=== PATIENT | male | born 1940 | race Caucasian/White ===

== ENCOUNTER 2017-01-18 08:53 | Inpatient (IN) | payer MEDICARE, OTHER ==
[2017-01-18] MEDS ORDERED: Cyclobenzaprine 10 MG Tab PO ONE (09:55)
[2017-01-18] MEDS ORDERED: Ketorolac 30 MG/ML SDV IVPUSH ONE (09:55)
[2017-01-18] MEDS ORDERED: HYDROmorphone 0.5 MG/0.5 ML Syringe IVPUSH ONE (10:20)
[2017-01-18] MEDS ORDERED: Ondansetron 4 MG/2 ML SDV IVPUSH ONE (10:20)
--- NOTE | 2017-01-18 10:24 | EDM.PDOC ---
ED HPI GENERAL MEDICAL PROBLEM - General Chief Complaint: Abdominal Pain Stated Complaint: PAIN IN RIGHT SIDE OF STOMACH AND NAUSA Time Seen by Provider: 01/18/17 10:22 Source of Information: Reports: Patient History Limitations: Reports: No Limitations - History of Present Illness INITIAL COMMENTS - FREE TEXT/NARRATIVE: pt started having rt lower abdomanal pain yesterday and this has gotten progrssively wors. he hurts alot if he coughes or sneezes. He has not vomited but he was nauseated in route to the hosp. Onset: Other ( started yesterday. ) Duration: Hour(s):, Getting Worse Location: Reports: Abdomen Associated Symptoms: Reports: Nausea/Vomiting - Related Data Allergies Allergy/AdvReac Type Severity Reaction Status Date / Time Penicillins Allergy Rash Verified 01/18/17 09:40 Home Meds: Home Meds Clopidogrel [Plavix] 75 mg PO DAILY 01/18/17 [History] Ibuprofen [Motrin] 800 mg PO ASDIRECTED PRN 01/18/17 [History] Lisinopril 5 mg PO DAILY 01/18/17 [History] Metoprolol Succinate 50 mg PO DAILY 01/18/17 [History] Past Medical History HEENT History: Reports: Impaired Vision Cardiovascular History: Reports: [place] Respiratory History: Reports: Pneumonia, Recurrent Musculoskeletal History: Reports: Arthritis - Infectious Disease History Infectious Disease History: Reports: Chicken Pox, Diphtheria, Measles, Rubella, Shingles - Past Surgical History Cardiovascular Surgical History: Reports: Carotid Stents Social & Family History - Family History Cardiac: Reports: [place] Respiratory: Reports: COPD GI: Reports: None Oncologic: Reports: Pancreatic Other Oncologic Family History: MOTHER AND GRANDMOTHER PANCREATIC C - Tobacco Use Smoking Status *Q: Former Smoker Used Tobacco, but Quit: No - Caffeine Use Caffeine Use: Reports: Coffee Other Caffeine Use: 3-4 - Recreational Drug Use Recreational Drug Use: No ED ROS GENERAL - Review of Systems Review Of Systems: See Below Constitutional: Reports: Chills, Decreased Appetite HEENT: Reports: No Symptoms Respiratory: Reports: No Symptoms Cardiovascular: Reports: No Symptoms Endocrine: Reports: No Symptoms GI/Abdominal: Reports: Abdominal Pain, Distension, Other (pt has acute rt lower abdomanal pain. He states this started yesterday. He has not vomited. ) : Reports: No Symptoms Musculoskeletal: Reports: No Symptoms Skin: Reports: No Symptoms ED EXAM, GI/ABD - Physical Exam Exam: See Below Text/Narrative:: pt arrived with pain in the rt lower abdoman. If he coughes or sneezes he is very uncomfortable. Exam Limited By: No Limitations General Appearance: Alert, Anxious, Moderate Distress Ears: Normal TMs Nose: Normal Inspection Throat/Mouth: Normal Inspection Head: Atraumatic Neck: Normal Inspection Respiratory/Chest: No Respiratory Distress Cardiovascular: Regular Rate, Rhythm GI/Abdominal Exam: Guarding, Tender, Other ( pt is very uncomfortable when he is palpated. His abdoman does feel mildly distended. ) (Male) Exam: Deferred Rectal (Males) Exam: Deferred Back Exam: Normal Inspection Extremities: Normal Inspection Neurological: Alert, Oriented, Normal Cognition Course - Vital Signs Last Recorded V/S: Last Vital Signs Temp 37.1 C 01/18/17 09:47 Pulse 89 01/18/17 11:04 Resp 18 01/18/17 11:04 BP 158/125 H 01/18/17 11:04 Pulse Ox 91 L 01/18/17 11:04 - Orders/Labs/Meds Orders: Active Orders 24 hr Category Date Time Status Abdomen Pelvis w Cont [CT] Stat Exams 01/18/17 10:21 Taken UA W/MICROSCOPIC [URIN] Urgent Lab 01/18/17 09:43 Uncollected Sodium Chloride 0.9% [Normal Saline] 1,000 ml Med 01/18/17 10:30 Active IV ASDIRECTED Medication Orders Sodium Chloride (Normal Saline) 1,000 mls @ 400 mls/hr IV ASDIRECTED FRANCINE Labs: Laboratory Tests 01/18/17 01/18/17 01/18/17 Range/Units 09:49 09:49 09:49 WBC 16.3 H (4.5-11.0) K/uL RBC 4.89 (4.30-5.90) M/uL Hgb 15.1 H (12.0-15.0) g/dL Hct 42.5 (40.0-54.0) % MCV 87 (80-98) fL MCH 31 (27-31) pg MCHC 36 (32-36) % Plt Count 188 (150-400) K/uL Neut % (Auto) 82 H (36-66) % Lymph % (Auto) 7 L (24-44) % [place] % (Auto) 4 (2-6) % Eos % (Auto) 6 H (2-4) % Baso % (Auto) 1 (0-1) % Sodium 137 L (140-148) mmol/L Potassium 3.7 (3.6-5.2) mmol/L Chloride 101 (100-108) mmol/L Carbon Dioxide 31 (21-32) mmol/L Anion Gap 8.7 (5.0-14.0) mmol/L BUN 15 (7-18) mg/dL Creatinine 1.0 (0.8-1.3) mg/dL Est Cr Clr Drug Dosing 59.67 mL/min Estimated GFR (MDRD) > 60 (>60) Glucose 260 H (74-106) mg/dL Calcium 8.8 (8.5-10.1) mg/dL Total Bilirubin 0.7 (0.2-1.0) mg/dL AST 17 (15-37) U/L ALT 20 (12-78) U/L Alkaline Phosphatase 63 (46-116) U/L C-Reactive Protein 0.53 H (0.0-0.3) mg/dL Total Protein 7.6 (6.4-8.2) g/dL Albumin 3.4 (3.4-5.0) g/dL Globulin 4.2 H (2.3-3.5) g/dL Albumin/Globulin Ratio 0.8 L (1.2-2.2) Meds: Medications Generic Name Dose Route Start Last Admin Trade Name Freq PRN Reason Stop Dose Admin Sodium Chloride 1,000 mls @ 400 mls/hr 01/18/17 10:30 Normal Saline IV ASDIRECTED FRANCINE Discontinued Medications Generic Name Dose Route Start Last Admin Trade Name Freq PRN Reason Stop Dose Admin Cyclobenzaprine HCl 10 mg 01/18/17 09:55 Flexeril PO 01/18/17 09:56 ONETIME ONE Hydromorphone HCl 0.5 mg 01/18/17 10:20 Dilaudid IVPUSH 01/18/17 10:21 ONETIME ONE Iopamidol 118 ml 01/18/17 10:30 01/18/17 10:45 Isovue-300 (61%) IV 150 ml . DIRECTED FRANCINE Administration Ketorolac Tromethamine 30 mg 01/18/17 09:55 Toradol IVPUSH 01/18/17 09:56 ONETIME ONE Ondansetron HCl 4 mg 01/18/17 10:20 Zofran IVPUSH 01/18/17 10:21 ONETIME ONE - Re-Assessments/Exams Free Text/Narrative Re-Assessment/Exam: 01/18/17 11:13 pt arrived with pain in rt lower abdoman. His cat scan shows an acute appendicitis. His wbc is elevated. He has some air around the appendix. Departure - Departure Time of Disposition: 11:14 Disposition: Admitted As Inpatient 68 Condition: Fair Clinical Impression: Acute appendicitis - Discharge Information Referrals: PCP,None [Primary Care Provider] - Forms: ED Department Discharge Care Plan Goals: admit to Dr Del Toro. - My Orders Last 24 Hours: My Active Orders 01/18/17 09:43 UA W/MICROSCOPIC [URIN] Urgent 01/18/17 10:21 Abdomen Pelvis w Cont [CT] Stat 01/18/17 10:30 Sodium Chloride 0.9% [Normal Saline] 1,000 ml IV ASDIRECTED - Assessment/Plan Last 24 Hours: My Active Orders 01/18/17 09:43 UA W/MICROSCOPIC [URIN] Urgent 01/18/17 10:21 Abdomen Pelvis w Cont [CT] Stat 01/18/17 10:30 Sodium Chloride 0.9% [Normal Saline] 1,000 ml IV ASDIRECTED
[2017-01-18] MEDS ORDERED: Sodium Chloride 0.9% 1,000 ML IV SCH ×2 (10:30→14:30)
[2017-01-18] MEDS ORDERED: Iopamidol 612 MG/ML 150 ML Bottle IV SCH (10:30)
--- NOTE | 2017-01-18 11:09 | CT ---
CT abdomen and pelvis. Total DOP 990. Indication: Right lower quadrant pain findings: Calcified granuloma right middle lobe. No focal consolidation. Fatty infiltration of the l iver. Gallbladder within normal limits. Fatty infiltration of the pancreas. Splenic granulomas. Adren al glands are within normal limits. No hydronephrosis. Tiny hypodensity within the left kidney. This is too small to characterize. 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 Trace free pelv ic fluid. There is a large appendicolith with fat stranding within the appendix. Appendix is up to 20 mm in diameter. There is free air indicating ruptured. No drainable fluid collection. Terminal ileum within normal limits. No acute osseous abnormality. Impression: 1. Acute in the appendicitis with large appendicolith. It is ruptured as there is free air. No draina ble fluid collection. Findings called to Dr. Cheng at time of examination. 2. Mild aneurysmal dilatation of the aorta..
[2017-01-18] MEDS ORDERED: LORazepam 0.5 MG Tab PO ONE (11:28)
--- NOTE | 2017-01-18 11:54 | CR ---
Mild cardiomegaly. Low lung volumes. No focal consolidation. Arthritic change left shoulder.
[2017-01-18] MEDS ORDERED: Ciprofloxacin in D5W 400 MG in Premix Bag 1 BAG IV ONE ×2 (13:00)
[2017-01-18] MEDS ORDERED: Neostigmine Methylsulfate 1 MG/ML 5 ML Syringe ONE (13:22)
[2017-01-18] MEDS ORDERED: Rocuronium 50 MG/5 ML Vial ONE (13:22)
[2017-01-18] MEDS ORDERED: Ondansetron 4 MG/2 ML SDV ONE (13:22)
[2017-01-18] MEDS ORDERED: Succinylcholine 200 MG/10 ML MDV ONE (13:22)
[2017-01-18] MEDS ORDERED: Glycopyrrolate 0.2 MG/ML 5 ML MDV ONE (13:22)
[2017-01-18] MEDS ORDERED: Propofol 200 MG/20 ML SDV ONE (13:22)
[2017-01-18] MEDS ORDERED: Dexamethasone 4 MG/ML SDV ONE (13:22)
[2017-01-18] MEDS ORDERED: metroNIDAZOLE/Normal Saline 500 MG in Premix Bag 1 BAG IV ONE (13:30)
[2017-01-18] MEDS ORDERED: Bupivacaine 0.5%/EPINEPHrine 1:200,000 50 ML MDV ONE (14:17)
[2017-01-18] MEDS ORDERED: Scopolamine 1.5 MG Transdermal Patch TOP PRN (14:19)
[2017-01-18] MEDS ORDERED: Ondansetron 4 MG/2 ML SDV IV PRN (14:19)
[2017-01-18] MEDS ORDERED: Nicotine 14 MG/24 Hr Patch TRDERM PRN (14:21)
[2017-01-18] MEDS ORDERED: diphenhydrAMINE 50 MG/ML SDV IV PRN (14:21)
[2017-01-18] MEDS ORDERED: Promethazine 25 MG/ML SDV IV PRN (14:21)
[2017-01-18] MEDS ORDERED: Morphine 2 MG/ML Syringe IV PRN (14:22)
[2017-01-18] MEDS ORDERED: fentaNYL 100 MCG/2 ML SDV IV PRN (14:23)
[2017-01-18] MEDS ORDERED: Lactated Ringers 1,000 ML ONE (16:12)
[2017-01-18] MEDS ORDERED: Ketorolac 60 MG/2 ML SDV ONE (16:40)
[2017-01-18] MEDS ORDERED: Ibuprofen 600 MG Tab PO PRN (16:56)
[2017-01-18] MEDS: Sodium Chloride 0.9% 1,000 ML IV SCH (19:37)
[2017-01-18] MEDS: Metoprolol Succinate 50 MG Tab.ER PO SCH (21:55)
[2017-01-18] MEDS: Clopidogrel 75 MG Tab PO SCH (21:56)
[2017-01-18] MEDS: metroNIDAZOLE/Normal Saline 500 MG in Premix Bag 1 BAG IV SCH (21:56)
--- NOTE | 2017-01-18 22:40 | CONS ---
DATE OF SERVICE: 01/18/2017 REFERRING PHYSICIAN: CONSULTING PHYSICIAN: Flaco Del Toro MD REASON FOR CONSULTATION: Right lower quadrant abdominal pain. HISTORY OF PRESENT ILLNESS: This is a 77-year-old male with acute onset of right lower quadrant abdominal pain. This has been present for several days. It is not associated with any nausea or vomiting. This is a new problem for him. PAST MEDICAL HISTORY: 1. The patient is unclear it is either carotid or coronary stent history most likely a coronary stent. 2. Elevated blood sugar on labs today, but the patient states he is not diabetic, but he has blood sugar consistent with diabetes. 3. Hypertension. 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 FAMILY HISTORY: Noncontributory. REVIEW OF SYSTEMS: GENERAL: The patient is appropriate for his condition. HEENT: No vision changes. CARDIOVASCULAR: No recent history of myocardial infarction. RESPIRATORY: No shortness of breath. GASTROINTESTINAL: Normal bowel movements. GENITOURINARY: No dysuria. NEUROLOGICAL: No symptoms. PSYCH: No symptoms. The remainder of review of systems was reviewed and negative. PHYSICAL EXAMINATION: VITAL SIGNS: Stable. GENERAL: The patient is appropriate for his condition. HEENT: Pupils are equal. NECK: Supple. LUNGS: Clear. CARDIOVASCULAR: Regular rhythm and rate. ABDOMEN: Bowel sounds positive. Pain with palpation right lower quadrant. EXTREMITIES: Full range of motion. NEUROLOGICAL: Oriented x3. PSYCH: No gross depression. LABORATORY DATA: Please see the chart. IMAGING: I did review the CT scan which shows ruptured appendicitis. ASSESSMENT AND PLAN: To the operating room for laparoscopic appendectomy. We discussed risks, benefits, alternatives, limitations including, but not limited to infection, bleeding, perforation, open surgery and other risks not listed here. The patient understands these risks and wished to proceed. Flaco Del Toro MD /[id number]
[2017-01-19] MEDS: Ciprofloxacin in D5W 400 MG in Premix Bag 1 BAG IV SCH ×4 (01:30→12:14)
[2017-01-19] MEDS: Acetaminophen/HYDROcodone 325-5 MG Tab PO PRN ×3 (01:45→18:11)
[2017-01-19] MEDS ORDERED: LIDOCAINE TOP PRN (01:55)
[2017-01-19] MEDS ORDERED: ASPERCREME TOP PRN (01:55)
[2017-01-19] MEDS: metroNIDAZOLE/Normal Saline 500 MG in Premix Bag 1 BAG IV SCH ×3 (05:38→21:32)
[2017-01-19] MEDS ORDERED: OMEPRAZOLE 20MG (PTOM) PO SCH (07:30)
[2017-01-19] MEDS ORDERED: OMEPRAZOLE 40MG (PTOM) PO SCH (07:30)
--- NOTE | 2017-01-19 08:11 | OR ---
DATE OF PROCEDURE: 01/18/2017 PROCEDURE: Laparoscopic appendectomy. FINDINGS: Ruptured appendicitis. PREOPERATIVE DIAGNOSIS: Appendicitis. POSTOPERATIVE DIAGNOSIS: Appendicitis. RISKS: The risks, benefits, alternatives, limitations including, but not limited to infection, bleeding, perforation to abdominal structures such as bowel, bladder, blood vessels, along with possibility of open surgery, abscess formation, and other risks were explained to the patient. We also discussed the general risks of surgery including DVT formation, stroke, myocardial infarction, respiratory failure, and others not listed. ANESTHESIA: General/local. PROCEDURE IN DETAIL: The patient was placed in supine position. The abdomen was prepped and draped. A supraumbilical curvilinear incision was made. After this, a Veress needle was used to enter the abdomen without abnormality. A drop test was performed without abnormality. The abdomen was subsequently insufflated. This was followed by an Optiview trocar. Two additional 5 mm ports were entered under direct visualization. The appendix was readily identified and was found to be ruptured. A mild amount of abscess was noted. The appendix could be cultured by directly culturing the appendix itself. The abdomen was thoroughly irrigated with 1 liter of irrigation and a 10 flat Domo-Finley drain was placed in the right lower quadrant. The wounds were thoroughly irrigated. The fascia was closed with #1 Vicryl in interrupted running fashion. Dressings were applied. The patient tolerated the procedure well. Flaco Del Toro MD /[id number]
[2017-01-19] MEDS: Sodium Chloride 0.9% 1,000 ML IV SCH ×2 (08:16→20:19)
[2017-01-19] MEDS: VERIFY SCOP PATCH TOP SCH (08:19)
[2017-01-19] MEDS: OMEPRAZOLE 20MG (PTOM) PO SCH (15:51)
[2017-01-19] MEDS: Clopidogrel 75 MG Tab PO SCH (20:25)
[2017-01-19] MEDS: Metoprolol Succinate 50 MG Tab.ER PO SCH (20:25)
[2017-01-19] MEDS ORDERED: Bisacodyl 5 MG Tab PO PRN (21:18)
[2017-01-19] MEDS ORDERED: Magnesium Hydroxide 400 MG/5 ML Susp 30 ML Cup PO PRN (21:19)
[2017-01-19] MEDS: Insulin Aspart 100 Units/ML 3 ML Pen SUBCUT SCH (21:35)
[2017-01-20] MEDS: Ciprofloxacin in D5W 400 MG in Premix Bag 1 BAG IV SCH ×4 (00:31→12:51)
[2017-01-20] MEDS ORDERED: Sodium Chloride 0.9% 1,000 ML IV SCH (03:45)
[2017-01-20] MEDS: metroNIDAZOLE/Normal Saline 500 MG in Premix Bag 1 BAG IV SCH ×3 (06:26→22:34)
[2017-01-20] MEDS: OMEPRAZOLE 20MG (PTOM) PO SCH ×2 (07:18→16:26)
[2017-01-20] MEDS: Insulin Aspart 100 Units/ML 3 ML Pen SUBCUT SCH ×4 (07:21→20:06)
[2017-01-20] MEDS: glipiZIDE 5 MG Tab.ER PO SCH (07:59)
[2017-01-20] MEDS: VERIFY SCOP PATCH TOP SCH (08:01)
[2017-01-20] MEDS ORDERED: Zolpidem 5 MG Tab PO PRN (09:17)
[2017-01-20] MEDS ORDERED: Docusate Sodium 100 MG Cap PO PRN (09:18)
[2017-01-20] MEDS: Clopidogrel 75 MG Tab PO SCH (20:06)
[2017-01-20] MEDS: Metoprolol Succinate 50 MG Tab.ER PO SCH (20:06)
[2017-01-20] MEDS: Acetaminophen/HYDROcodone 325-5 MG Tab PO PRN (22:33)
[2017-01-21] MEDS: Ciprofloxacin in D5W 400 MG in Premix Bag 1 BAG IV SCH ×2 (00:53)
[2017-01-21] MEDS: metroNIDAZOLE/Normal Saline 500 MG in Premix Bag 1 BAG IV SCH (05:23)
[2017-01-21 07:19] VITALS: BP 117/75
[2017-01-21] MEDS: Insulin Aspart 100 Units/ML 3 ML Pen SUBCUT SCH (09:05)
[2017-01-21] MEDS: OMEPRAZOLE 20MG (PTOM) PO SCH (09:13)
[2017-01-21] MEDS: glipiZIDE 5 MG Tab.ER PO SCH (09:13)
[2017-01-21] MEDS: VERIFY SCOP PATCH TOP SCH (09:14)
--- NOTE | 2017-02-09 15:04 | PN ---
DATE OF SERVICE: 01/19/2017 SUBJECTIVE: The patient is doing well today. Pain is well controlled. No nausea, vomiting, shortness of breath, or chest pain. OBJECTIVE: VITAL SIGNS: Stable. CARDIOVASCULAR: Regular rhythm and rate. RESPIRATORY: Lungs clear to consultation bilaterally. ABDOMEN: Bowel sounds positive. Incision is healing well. LABORATORY RESULTS: Show decreased white blood cell count, normal hemoglobin. ASSESSMENT: Status post laparoscopic appendectomy. PLAN: We will continue to work on diet and activity. We also continue monitoring his blood sugar levels. Flaco Del Toro MD /[id number]
--- NOTE | 2017-02-09 15:04 | PN ---
DATE OF SERVICE: 01/20/2017 SUBJECTIVE: The patient is doing well. Pain is improved. No nausea, vomiting, shortness of breath, or chest pain. OBJECTIVE: VITAL SIGNS: Stable. Temperature 98.1, blood pressure 130/78, respirations 16, 93% on room air. CARDIOVASCULAR: Regular rhythm and rate. RESPIRATORY: Lungs are clear to consultation bilaterally. ABDOMEN: Incisions healing well. ASSESSMENT: Status post laparoscopic appendectomy. PLAN: The patient will be discharged in the next 24 to 48 hours. Continue to advance diet and activity. Flaco Del Toro MD /[id number]
--- NOTE | 2017-02-09 15:31 | DISCH ---
DISCHARGE DIAGNOSIS: Status post appendectomy with abscess drainage. SUMMARY OF HOSPITAL COURSE: This is a pleasant 77-year-old male who underwent an uneventful laparoscopic appendectomy . The patient did well, although he is a diabetic, which he is not currently managing. The patient did well with respect to surgical recovery. Prior to discharge, his pain is well controlled. He had no nausea, shortness of breath, or chest pain. FOLLOWUP: Follow up with Surgery in 7 to 14 days. ACTIVITY: No lifting greater than 30 pounds x30 days.
== END 2017-01-21 11:49 | disposition home or self-care (01) | DRG 340 ==
LOC: JP.ED 08:53 → JP.MS 11:15
PROVIDERS: ADMIT Surgery; ATTEND Surgery
PROC: 0DTJ4ZZ Resection of Appendix, Percutaneous Endoscopic Approach (ICD-10-PCS; principal; 2017-01-18)
DX: K35.3 Acute appendicitis with localized peritonitis (principal); R10.13 Epigastric pain; I25.2 Old myocardial infarction; H54.7 Unspecified visual loss; M19.90 Unspecified osteoarthritis, unspecified site; Z87.01 Personal history of pneumonia (recurrent); Z88.0 Allergy status to penicillin; E11.9 Type 2 diabetes mellitus without complications
CPT/HCPCS: 36415; 74177 ×2; 80053; 85025; 86140; 99285 ×2; J2405; J7040; 71010; 71010-26; 80048; 81001; 82962; 83036; 85027; 87070; 87075; 87077; 87186; 87205; 88304; 93005; A9270-GY; J0330; J0744; J1100; J1170; J1885; J2704; J2710; J3010; J7120

== ENCOUNTER 2019-08-11 11:10 | Emergency (ER) | payer MEDICARE, OTHER ==
[2019-08-11 11:27] VITALS: BP 118/68; PULSE 86
--- NOTE | 2019-08-11 11:40 | EDM.PDOC ---
ED HPI GENERAL MEDICAL PROBLEM - General Chief Complaint: Upper Extremity Injury/Pain Stated Complaint: SWOLLEN/SORE R ARM Time Seen by Provider: 08/11/19 11:30 Source of Information: Reports: Patient, Family, RN Notes Reviewed History Limitations: Reports: No Limitations - History of Present Illness INITIAL COMMENTS - FREE TEXT/NARRATIVE: 79-year-old gentleman presents emergency department a complaint of painful red area on his right arm it is also difficult for him to move his right joint symptoms came on in the last 24 hours he is concerned it might be cellulitis he has not had any fevers there is no breaks in the skin Right Wrist Pain Score (Numeric/FACES): 10 - Related Data Allergies Allergy/AdvReac Type Severity Reaction Status Date / Time Penicillins Allergy Rash Verified 01/18/17 09:40 Home Meds: Home Meds Clopidogrel [Plavix] 75 mg PO DAILY 01/18/17 [History] Ibuprofen [Motrin] 800 mg PO ASDIRECTED PRN 01/18/17 [History] Lisinopril 5 mg PO DAILY 01/18/17 [History] Metoprolol Succinate 50 mg PO DAILY 01/18/17 [History] Omeprazole 20 mg PO BIDAC 01/19/17 [History] Aspirin 81 mg PO DAILY 01/20/17 [History] Acetaminophen/HYDROcodone [[place] 325-5 MG] 1 - 2 tab PO Q4H PRN #30 tab [Rx] glipiZIDE [Glipizide Xl] 5 mg PO DAILY #30 tab.er.24 01/21/17 [Rx] Cephalexin [Keflex] 500 mg PO TID #21 capsule 08/11/19 [Rx] metFORMIN [Glucophage] 500 mg PO BIDMEALS 08/11/19 [History] Past Medical History HEENT History: Reports: Impaired Vision Cardiovascular History: Reports: CAD, Hypertension, [place], Stents Respiratory History: Reports: Pneumonia, Recurrent Musculoskeletal History: Reports: Arthritis - Infectious Disease History Infectious Disease History: Reports: Chicken Pox, Measles, Mumps - Past Surgical History Cardiovascular Surgical History: Reports: Carotid Stents Musculoskeletal Surgical History: Reports: Arthroscopic Knee Social & Family History - Family History Cardiac: Reports: [place] Respiratory: Reports: COPD GI: Reports: None Oncologic: Reports: Pancreatic Other Oncologic Family History: MOTHER AND GRANDMOTHER PANCREATIC C - Tobacco Use Smoking Status *Q: Never Smoker - Caffeine Use Caffeine Use: Reports: Coffee Other Caffeine Use: 3-4 - Recreational Drug Use Recreational Drug Use: No Review of Systems - Review of Systems Review Of Systems: See Below Constitutional: Reports: No Symptoms Respiratory: Reports: No Symptoms Cardiovascular: Reports: No Symptoms Musculoskeletal: Reports: Joint Pain Skin: Reports: Pallor, Rash, Erythema ED EXAM, GENERAL - Physical Exam Exam: See Below Free Text/Narrative:: Examination of the right arm he does have an erythematous area over the right wrist it is not angry I do not appreciate any break in the skin it is warm to the touch very tender to the touch difficult for him to move his wrist secondary to pain radial pulses +2 sensation is intact Exam Limited By: No Limitations General Appearance: Alert, WD/WN, No Apparent Distress Respiratory/Chest: No Respiratory Distress Course - Vital Signs Last Recorded V/S: Last Vital Signs Temp 97.9 F 08/11/19 11:23 Pulse 86 08/11/19 11:23 Resp 16 08/11/19 11:23 BP 118/68 08/11/19 11:23 Pulse Ox 92 L 08/11/19 11:23 - Orders/Labs/Meds Labs: Laboratory Tests 08/11/19 08/11/19 08/11/19 Range/Units 12:00 12:00 12:00 WBC 14.7 H (4.5-11.0) K/uL RBC 4.48 (4.30-5.90) M/uL Hgb 13.8 (12.0-15.0) g/dL Hct 41.2 (40.0-54.0) % MCV 92 (80-98) fL MCH 31 (27-31) pg MCHC 34 (32-36) % Plt Count 239 (150-400) K/uL Neut % (Auto) 80 H (36-66) % Lymph % (Auto) 7 L (24-44) % [place] % (Auto) 11 H (2-6) % Eos % (Auto) 2 (2-4) % Baso % (Auto) 0 (0-1) % Sodium (140-148) mmol/L Potassium (3.6-5.2) mmol/L Chloride (100-108) mmol/L Carbon Dioxide (21-32) mmol/L Anion Gap (5.0-14.0) mmol/L BUN (7-18) mg/dL Creatinine (0.8-1.3) mg/dL Est Cr Clr Drug Dosing mL/min Estimated GFR (MDRD) (>60) Glucose (74-106) mg/dL Lactic Acid 1.7 (0.4-2.0) mmol/L Uric Acid 5.2 (3.5-7.2) mg/dL Calcium (8.5-10.1) mg/dL C-Reactive Protein (0.0-0.3) mg/dL 08/11/19 08/11/19 Range/Units 12:00 12:00 WBC (4.5-11.0) K/uL RBC (4.30-5.90) M/uL Hgb (12.0-15.0) g/dL Hct (40.0-54.0) % MCV (80-98) fL MCH (27-31) pg MCHC (32-36) % Plt Count (150-400) K/uL Neut % (Auto) (36-66) % Lymph % (Auto) (24-44) % [place] % (Auto) (2-6) % Eos % (Auto) (2-4) % Baso % (Auto) (0-1) % Sodium 134 L (140-148) mmol/L Potassium 4.2 (3.6-5.2) mmol/L Chloride 98 L (100-108) mmol/L Carbon Dioxide 26 (21-32) mmol/L Anion Gap 14.2 H (5.0-14.0) mmol/L BUN 27 H (7-18) mg/dL Creatinine 1.2 (0.8-1.3) mg/dL Est Cr Clr Drug Dosing 46.52 mL/min Estimated GFR (MDRD) 59 L (>60) Glucose 213 H (74-106) mg/dL Lactic Acid (0.4-2.0) mmol/L Uric Acid (3.5-7.2) mg/dL Calcium 9.2 D (8.5-10.1) mg/dL C-Reactive Protein 13.65 H (0.0-0.3) mg/dL Departure - Departure Time of Disposition: 12:39 Disposition: Home, Self-Care 01 Condition: Fair Clinical Impression: Cellulitis Qualifiers: Site of cellulitis: extremity Site of cellulitis of extremity: upper extremity Laterality: right Qualified Code(s): L03.113 - Cellulitis of right upper limb - Discharge Information Instructions: Cellulitis, Adult Referrals: Pham Scruggs MD [Primary Care Provider] - Forms: ED Department Discharge Additional Instructions: Take full course of antibiotics, please followup with your primary care provider in 3-5 days if not better, please call return to the emergency department with worsening of symptoms. Your antibiotics have been faxed to [facility] pharmacy Sepsis Event Note - Evaluation Sepsis Screening Result: No Definite Risk - Focused Exam Vital Signs: Vital Signs Temp Pulse Resp BP Pulse Ox 08/11/19 11:23 97.9 F 86 16 118/68 92 L Date Exam was Performed: 08/11/19 Time Exam was Performed: 12:35 - Assessment/Plan Plan: Assessment Acuity = acute Site and laterality = cellulitis right forearm Etiology = probable bacterial cause Manifestations = none Location of injury = Home Lab values = WBC elevated 14.7 consistent leukocytosis, glucose 213 consistent hyperglycemia CRP elevated 13.65 uric acid normal at 5.2 Plan Because of his allergy profile he did state he was allergic to Bactrim I like to try Keflex 500 mg p.o. 3 times daily medications faxed to [facility] pharmacy follow-up primary care 3 to 5 days if no improvement This note was dictated using [employer] voice recognition software please call with any questions on syntax or grammar.
[2019-08-11] MEDS ORDERED: Acetaminophen 325 MG Tab PO ONE (12:49)
== END 2019-08-11 13:00 | disposition home or self-care (01) ==
LOC: JP.ED 11:10
DX: L03.113 Cellulitis of right upper limb (principal); I10 Essential (primary) hypertension; I25.10 Atherosclerotic heart disease of native coronary artery without angina pectoris; I25.2 Old myocardial infarction; Z79.899 Other long term (current) drug therapy; Z88.0 Allergy status to penicillin; Z79.82 Long term (current) use of aspirin
CPT/HCPCS: 36415; 80048; 83605; 84550; 85025; 86140; 99283; A9270

== ENCOUNTER 2021-06-11 09:31 | Inpatient (IN) | payer OTHER ==
[2021-06-11] MEDS ORDERED: Nitroglycerin 0.4 MG Tab.SL SL ONE (10:27)
[2021-06-11] MEDS ORDERED: Morphine 2 MG/ML SYRINGE IM ONE (10:28)
[2021-06-11] MEDS ORDERED: Aspirin 81 MG Tab.Chew PO ONE (10:28)
[2021-06-11 10:29] LABS: CORONAVIRUS COVID-19 NAA NEGATIVE (NEGATIVE)
[2021-06-11] MEDS ORDERED: Furosemide 20 MG Tab PO ONE (10:52)
[2021-06-11] MEDS ORDERED: Sodium Chloride 0.9% 10 ML Syringe FLUSH PRN ×2 (10:53→14:12)
[2021-06-11] MEDS ORDERED: Furosemide 20 MG/2 ML VIAL IVPUSH ONE ×2 (10:53→19:00)
[2021-06-11] MEDS ORDERED: Magnesium Sulfate/Water 2 GM in Premix Bag 1 BAG IV ONE (10:57)
[2021-06-11] MEDS ORDERED: Iopamidol 755 Mg/ML 100 ML Bottle IV SCH (11:15)
[2021-06-11] MEDS ORDERED: Sodium Chloride 0.9% 100 ML IV SCH (11:15)
[2021-06-11] MEDS ORDERED: Ondansetron 4 MG/2 ML SDV IVPUSH ONE (13:05)
[2021-06-11] MEDS ORDERED: Glucose Gel 15 GM in 37.5 GM Tube PO PRN (14:12)
[2021-06-11] MEDS ORDERED: 50% Dextrose in Water 50 ML Syringe IV PRN (14:12)
[2021-06-11] MEDS ORDERED: Enoxaparin 40 MG/0.4 ML Syringe SUBCUT SCH (14:12)
[2021-06-11] MEDS ORDERED: Ondansetron 4 MG/2 ML SDV IV PRN (14:12)
[2021-06-11] MEDS ORDERED: Acetaminophen 325 MG Tab PO PRN (14:12)
[2021-06-11] MEDS: Magnesium Sulfate/Water 2 GM in Premix Bag 1 BAG IV SCH ×2 (15:52→20:45)
[2021-06-11] MEDS: Magnesium Oxide 400 MG Tab PO SCH ×2 (15:52→20:46)
[2021-06-11] MEDS: metFORMIN 500 MG Tab PO SCH (17:00)
[2021-06-11] MEDS: Insulin Lispro 100 Unit/ML 3 ML KwikPen SUBCUT SCH ×2 (17:59→21:39)
[2021-06-11] MEDS ORDERED: Furosemide 40 MG/4 ML VIAL IVPUSH ONE ×2 (19:00)
[2021-06-11] MEDS: Apixaban 5 MG Tab PO SCH (20:46)
[2021-06-12] MEDS: Insulin Lispro 100 Unit/ML 3 ML KwikPen SUBCUT SCH ×4 (07:59→21:17)
[2021-06-12] MEDS: metFORMIN 500 MG Tab PO SCH ×2 (08:00→17:45)
[2021-06-12] MEDS: Aspirin 81 MG Tab.EC PO SCH (08:06)
[2021-06-12] MEDS: Apixaban 5 MG Tab PO SCH ×2 (08:07→20:56)
[2021-06-12] MEDS: Lisinopril 5 MG Tab PO SCH (08:07)
[2021-06-12] MEDS: Magnesium Oxide 400 MG Tab PO SCH ×2 (08:07→20:56)
[2021-06-12] MEDS: atorvaSTATin 20 MG Tab PO SCH (08:07)
[2021-06-12] MEDS: Metoprolol Succinate 50 MG Tab.ER PO SCH (08:07)
[2021-06-12] MEDS ORDERED: Furosemide 40 MG/4 ML VIAL IVPUSH ONE ×3 (08:20→18:00)
[2021-06-13] MEDS: Insulin Lispro 100 Unit/ML 3 ML KwikPen SUBCUT SCH ×5 (07:44→19:13)
[2021-06-13] MEDS: metFORMIN 500 MG Tab PO SCH ×2 (07:45→16:33)
[2021-06-13] MEDS: Lisinopril 5 MG Tab PO SCH (09:39)
[2021-06-13] MEDS: atorvaSTATin 20 MG Tab PO SCH (09:40)
[2021-06-13] MEDS: Aspirin 81 MG Tab.EC PO SCH (09:40)
[2021-06-13] MEDS: Furosemide 40 MG/4 ML VIAL IVPUSH SCH (09:40)
[2021-06-13] MEDS: Apixaban 5 MG Tab PO SCH ×2 (09:40→20:14)
[2021-06-13] MEDS: Potassium Chloride 20 MEQ Tab.ER PO SCH ×2 (09:40→20:13)
[2021-06-13] MEDS: Magnesium Oxide 400 MG Tab PO SCH ×2 (09:40→20:13)
[2021-06-13] MEDS: Metoprolol Succinate 50 MG Tab.ER PO SCH (09:42)
[2021-06-13] MEDS ORDERED: Furosemide 40 MG/4 ML VIAL IVPUSH ONE (16:00)
[2021-06-13] MEDS ORDERED: Furosemide 20 MG/2 ML VIAL IVPUSH ONE (22:08)
[2021-06-14] MEDS: Insulin Lispro 100 Unit/ML 3 ML KwikPen SUBCUT SCH ×4 (08:39→19:54)
[2021-06-14] MEDS: metFORMIN 500 MG Tab PO SCH ×2 (08:40→17:37)
[2021-06-14] MEDS: Potassium Chloride 20 MEQ Tab.ER PO SCH ×2 (08:41→20:00)
[2021-06-14] MEDS: Apixaban 5 MG Tab PO SCH ×2 (08:42→20:00)
[2021-06-14] MEDS: glipiZIDE 5 MG Tab PO SCH (08:42)
[2021-06-14] MEDS: atorvaSTATin 20 MG Tab PO SCH (08:43)
[2021-06-14] MEDS: Aspirin 81 MG Tab.EC PO SCH (08:43)
[2021-06-14] MEDS: Magnesium Oxide 400 MG Tab PO SCH ×2 (08:44→20:00)
[2021-06-14] MEDS: Metoprolol Succinate 50 MG Tab.ER PO SCH (08:47)
[2021-06-14] MEDS: Lisinopril 5 MG Tab PO SCH (08:48)
[2021-06-14] MEDS: Furosemide 40 MG/4 ML VIAL IVPUSH SCH (08:49)
[2021-06-14] MEDS ORDERED: GLIPIZIDE 10 MG PO SCH (09:00)
[2021-06-14] MEDS ORDERED: traZODone 50 MG Tab PO PRN (13:33)
[2021-06-14] MEDS ORDERED: Furosemide 40 MG/4 ML VIAL IVPUSH ONE (15:00)
[2021-06-14] MEDS ORDERED: Melatonin 3 MG Tab PO SCH (21:00)
[2021-06-15 07:40] VITALS: BP 109/70; PULSE 97
[2021-06-15] MEDS: Insulin Lispro 100 Unit/ML 3 ML KwikPen SUBCUT SCH (09:01)
[2021-06-15] MEDS: glipiZIDE 5 MG Tab PO SCH (09:02)
[2021-06-15] MEDS: metFORMIN 500 MG Tab PO SCH (09:02)
[2021-06-15] MEDS: Aspirin 81 MG Tab.EC PO SCH (09:02)
[2021-06-15] MEDS: atorvaSTATin 20 MG Tab PO SCH (09:02)
[2021-06-15] MEDS: Potassium Chloride 20 MEQ Tab.ER PO SCH (09:02)
[2021-06-15] MEDS: Apixaban 5 MG Tab PO SCH (09:02)
[2021-06-15] MEDS: Metoprolol Succinate 50 MG Tab.ER PO SCH (09:02)
[2021-06-15] MEDS: Lisinopril 5 MG Tab PO SCH (09:03)
[2021-06-15] MEDS: Furosemide 40 MG/4 ML VIAL IVPUSH SCH ×2 (09:03→10:26)
[2021-06-15] MEDS: Magnesium Oxide 400 MG Tab PO SCH (09:03)
== END 2021-06-15 11:35 | disposition home or self-care (01) | DRG 291 ==
LOC: JP.ED 09:31 → JP.MS 13:25
PROVIDERS: ADMIT Hospitalist; ATTEND Internal Medicine
DX: I11.0 Hypertensive heart disease with heart failure (principal); I50.23 Acute on chronic systolic (congestive) heart failure; I50.9 Heart failure, unspecified; J96.01 Acute respiratory failure with hypoxia; M19.90 Unspecified osteoarthritis, unspecified site; I48.0 Paroxysmal atrial fibrillation; I25.10 Atherosclerotic heart disease of native coronary artery without angina pectoris; Z95.5 Presence of coronary angioplasty implant and graft; H54.7 Unspecified visual loss; Z79.02 Long term (current) use of antithrombotics/antiplatelets; I48.91 Unspecified atrial fibrillation; Z20.822 Contact with and (suspected) exposure to COVID-19; Z88.0 Allergy status to penicillin; I25.2 Old myocardial infarction; Z87.891 Personal history of nicotine dependence; Z79.82 Long term (current) use of aspirin; Z79.84 Long term (current) use of oral hypoglycemic drugs; Z79.899 Other long term (current) drug therapy
CPT/HCPCS: 0241U; 36415; 71045; 71275; 80048; 80076; 82947; 83735; 83880; 84443; 84484; 85025; 85379; 85610; 85730; 87040; 93005; 93010; 93306; 96365; 96366; 96372; 96375; 97162; 97530; 97535; 99285; A9270-GY; J1815; J1940; J2270; J2405; J3475; Q9967